=== PATIENT | female | born 1955 | race Caucasian/White ===

== ENCOUNTER 2019-07-24 09:05 | Inpatient (IN) ==
--- NOTE | 2019-07-24 09:07 | PROVIDER DOCUMENTATION ---
HPI-General Adult - General Stated Complaint: SOB Time Seen by Provider: 07/24/19 09:06 Source: patient Allergies/Adverse Reactions: Patient Allergies Allergy/AdvReac Type Severity Reaction Status Date / Time Penicillins Allergy RASH Verified 05/17/15 16:53 Home Medications: Home Medication List Medication Instructions Recorded Confirmed Last Taken Type Albuterol 2.5MG/Ipratrop 0.5MG 3 ml INH Q6H PRN PRN #30 neb 05/17/15 Unknown Rx [Duoneb] Albuterol Sulfate [Proair Hfa] 2 puff IH 4XDAY 05/17/15 05/17/15 05/15/15 History Aspirin 325 mg PO DAILY 05/17/15 05/17/15 05/17/15 08:00 History Meloxicam [Mobic] 7.5 mg PO DAILY 05/17/15 05/17/15 05/17/15 08:00 History Omeprazole [Prilosec] 20 mg PO DAILY 05/17/15 05/17/15 05/17/15 08:00 History Oxybutynin [Ditropan] 10 mg PO DAILY 05/17/15 05/17/15 05/17/15 08:00 History Paroxetine [Paxil] 20 mg PO DAILY 05/17/15 05/17/15 05/17/15 08:00 History Simvastatin 20 mg PO QHS 05/17/15 05/17/15 05/16/15 21:00 History Tiotropium [place] Inhaler 1 cap INH DAILY 05/17/15 05/17/15 05/17/15 08:00 History [Spiriva] Ondansetron [Zofran] 4 mg PO Q6H PRN PRN #20 tablet 06/25/16 Unknown Rx Promethazine [Phenergan] 25 mg PO Q6H PRN PRN #20 tablet 06/25/16 Unknown Rx Promethazine [Phenergan] 25 mg NC Q6H PRN PRN #14 supp 06/25/16 Unknown Rx - History of Present Illness -Gen Adult Nature of Presenting Problems: Pt. is 64 yof that presents with c/o SOB. Pt. reports she smokes and has COPD. She reports she is suppose to be on 2LO2 all the time but doesn't always wear it. She states that she went up her stairs today and couldn't breath. She denies any pain. Location of Pain/Injury: reports: none. denies: head, face, mouth, neck, chest, upper extremity, hand(s), abdomen, back, pelvis, genitalia, lower extremity, feet, upper body, lower body, generalized, other Pain Radiation: reports: no radiation. denies: arm(s), back, buttocks, chest, epigastric, feet, groin, jaw, flank (L), legs (lower), LLQ, LUQ, neck, periumbilical, flank (R), RLQ, RUQ, shoulder(s), scapula, scrotal, sternal notch, suprapubic, legs (upper), urethral, vaginal, other Quality of Pain: reports: none. denies: aching, pressure, tightness Severity: reports: moderate. denies: mild, severe Onset/Duration: reports: abrupt, this morning Timing: reports: still present. denies: improving, intermittent, getting worse Context/Activities at Onset: reports: light activity. denies: none, moderate activity, vigorous activity, recent emotional stress, recent physical stress, recent trauma history, possible bad food, cold exposure, eating, out of country travel, rest, sleep, sexual activity, other Modifying Factors: improves with: nothing Associated Symptoms: reports: shortness of breath. denies: denies symptoms, anxiety, arm pain, back/neck pain, chest pain, constipation, cough, diaphoresis, diarrhea, dizziness, EENT symptoms, fatigue, fever/chills, genitourinary problems, headaches, heartburn, joint pain, loss of appetite, malaise, muscle aches, sinus congestion/drainage, nausea, rash, seizure, sensory/motor loss, pain with inspiration, swelling/mass in abdomen, syncope, vomiting, weakness, trouble walking, other Similar Symptoms Previously?: Yes Recently seen or treated by another doctor?: No Review of Systems - Adult - REVIEW OF SYSTEMS - ADULT Constitutional: reports: no symptoms reported Eyes: reports: no symptoms reported Ears, Nose, Mouth & Throat: reports: no symptoms reported Cardiovascular: reports: no symptoms reported Respiratory: reports: see HPI, shortness of breath, wheezing. denies: chronic cough, dyspnea on exertion, hemoptysis Gastrointestinal: reports: no symptoms reported Genitourinary: reports: no symptoms reported Musculoskeletal: reports: no symptoms reported Integumentary: reports: no symptoms reported Neurological: reports: no symptoms reported Psychiatric: reports: no symptoms reported Past History - Adult - PAST MEDICAL HISTORY-ADULT Review of Records: reports: Old Records Reviewed, Nursing Assessment Review, Medications Reviewed, Social history reviewed & non-contributory. Major Childhood Illnesses: reports: denies history Cardiovascular: reports: denies history Respiratory: reports: COPD Gastrointestinal: reports: denies history Obstetrical/Gynecological: reports: denies history Genitourinary: reports: denies history Musculoskeletal: reports: denies history Neurological: reports: denies history Endocrine/Immune: reports: denies history Other Conditions: reports: denies history - IMMUNIZATION STATUS Childhood Immunizations: See Nurse Assessment Flu Vaccine: See Nurse Assessment - FAMILY HISTORY Family History: reviewed, not pertinent - SOCIAL HISTORY Smoking: cigarettes, greater than 1 pack/day Provider spent 3-5 mins advising pt. on dangers of tobacco.: Discussed manners to quit use, and f/u contacts for add'l counseling. Physical Exam-General - PHYSICAL EXAM-ADULT Initial Vital Signs Reviewed: Yes - CONSTITUTIONAL General Appearance: alert, moderate distress, thin. negative: anxious, slow to respond, obtunded, combative - EYES Eyes: PERRL/EOMI, pink conjunctivae - HEAD, EARS, NOSE, MOUTH & THROAT HENMT: normocephalic/atraumatic, moist mucous membranes - NECK Neck: non-tender, full range of motion, supple, normal inspection - RESPIRATORY Respiratory: respiratory distress, wheezing, increased rate - CARDIOVASCULAR Cardiovascular: regular rate, rhythm, no edema, tachycardia - GASTROINTESTINAL (ABDOMEN) Abdominal Exam: normal bowel sounds, non tender, soft - LYMPHATIC Lymphatic: no adenopathy - MUSCULOSKELETAL Back Exam: normal inspection, no CVA tenderness, no vertebral tenderness Extremity: normal range of motion, non-tender, normal gait, normal inspection Peripheral Pulses: radial (R): 2+, radial (L): 2+ - SKIN Integumentary: normal color, normal turgor, warm/dry - NEUROLOGIC Neurologic: grossly normal, no motor/sensory deficits - PSYCHIATRIC Psych/Mental Status: normal mood/affect, normal thought content, normal thought process, oriented x 3. negative: anxious, paranoid, tearful Progress - PLAN OF CARE/RESULTS Progress/Plan/Lab Results: Laboratory Tests 07/24/19 07/24/19 07/24/19 09:32 10:05 10:05 WBC 31.17 H RBC 4.98 Hgb 14.5 Hct 44.5 MCV 89.4 MCH 29.1 MCHC 32.6 L RDW Std Deviation 16.0 H Plt Count 278 MPV 13.0 H Immature Gran % (Auto) 0.4 Neut % (Auto) 71.9 Lymph % (Auto) 20.5 Alger % (Auto) 3.8 Eos % (Auto) 3.1 Baso % (Auto) 0.3 Immature Gran # (Auto) 0.12 H Neut # (Auto) 22.41 H Lymph # (Auto) 6.38 H Alger # (Auto) 1.20 H Eos # (Auto) 0.96 H Baso # (Auto) 0.10 Segmented Neutrophils 74 Lymphocytes 26 Pathologist Review Poikilocytosis 1+ Specimen Type ARTERIAL Sample Site R RADIAL pH 7.32 L pCO2 38 pO2 111 H HCO3 20.2 Base Excess -5.9 L Oxyhemoglobin 94.8 L ABG O2 Sat (Calculated) 20.5 ABG O2 Saturation 99.1 ABG Carboxyhemoglobin 3.10 H ABG Methemoglobin 1.1 Chirag Test YES A-a O2 Difference 41.0 Total Hemoglobin 15.3 Lactate 2.20 Liter Flow 2.0 Blood Gas Modality CANNULA FiO2 % 28.0 Sodium Potassium Chloride Carbon Dioxide Anion Gap BUN Creatinine Estimated GFR/1.73 m2 BUN/Creatinine Ratio Glucose Calculated Osmolality Calcium Total Bilirubin AST ALT Alkaline Phosphatase Creatine Kinase Troponin T High Sens [id number]-[id number] Pept 272 H Total Protein Albumin Globulin Albumin/Globulin Ratio Plasma Lactate 07/24/19 07/24/19 07/24/19 10:05 10:05 10:05 WBC RBC Hgb Hct MCV MCH MCHC RDW Std Deviation Plt Count MPV Immature Gran % (Auto) Neut % (Auto) Lymph % (Auto) Alger % (Auto) Eos % (Auto) Baso % (Auto) Immature Gran # (Auto) Neut # (Auto) Lymph # (Auto) Alger # (Auto) Eos # (Auto) Baso # (Auto) Segmented Neutrophils Lymphocytes Pathologist Review Poikilocytosis Specimen Type Sample Site pH pCO2 pO2 HCO3 Base Excess Oxyhemoglobin ABG O2 Sat (Calculated) ABG O2 Saturation ABG Carboxyhemoglobin ABG Methemoglobin Chirag Test A-a O2 Difference Total Hemoglobin Lactate Liter Flow Blood Gas Modality FiO2 % Sodium 140 Potassium 4.2 Chloride 106 Carbon Dioxide 22 L Anion Gap 12 BUN 12 Creatinine 0.9 Estimated GFR/1.73 m2 > 60 BUN/Creatinine Ratio 13 Glucose 236 H Calculated Osmolality 287 Calcium 8.8 Total Bilirubin 0.39 AST 16 ALT 11 Alkaline Phosphatase 95 Creatine Kinase 96 Troponin T High Sens 300 H* Skr-[id number] Pept Total Protein 6.8 Albumin 3.8 Globulin 3.0 Albumin/Globulin Ratio 1.3 Plasma Lactate 1.6 Discussed results and plan of care with patient. Patient agrees with plan and verbalizes understanding. Result Diagrams: 07/24/19 10:05 07/24/19 10:05 - EKG 1 Time of EKG reading by physician:: 09:20 EKG Read and Signed by:: Brittany Bonner EKG Interpretation (*Must complete 3 of following elements*): Abnormal Rate: 126 Rhythm: ST [place]: normal QRS: normal NC Interval: normal ST Wave: non-specific ST changes - XRAY 1 XRAY Study: Chest ([facility] [address] [place] [address] [place] [id number] [facility] - [address] [place] [address] Department of Imaging Patient: ARIEL HARDY Date: 07/24/19#: [id number] : 5ADM Status: REG ERAt#: [id number] Age/Sex: 64/FRoom/Bed: Loc: ED Ordering Physician: Todd eBard Family Physician: Chata Martel MD Reason for Procedure: sob Signed EXAM: CHEST-PORTABLE HISTORY: sob TECHNIQUE: Single view COMPARISON: 05/09/2019 FINDINGS: The lungs are hyperexpanded. Mild increased interstitial markings throughout the lungs. No cardiomegaly. No consolidation. No pleural effusions identified. There are scattered granuloma. IMPRESSION: Emphysema with pulmonary edema Electronically signed by Harlan Riggs 07/24/2019 9:33 AM 07/24/19932 Interpreting Physician: Harlan Riggs MD Dictated Date/Time: 07/24/19931 cc: Todd Beard; Chata Martel MD) XRAY Interpretation: See note - CONSULTS/PCP/HOSPITALIST Notification #1 *Consult/PCP/Hospitalist*: Dr. Morejon Reason/Comments: Consult Consult Disposition: other (Had not called back at time of admission) #2 Consult: Betsey for Dr. Coelho Time Discussed: 11:38 Reason/Comments: Admission Consult Disposition: Will see in ED, Admit Departure - Departure Date of Disposition Decision: 07/24/19 Time of Disposition Decision: 10:44 DIAGNOSIS: COPD with exacerbation, Shortness of breath, Elevated troponin Leucocytosis Qualifiers: Leukocytosis type: unspecified Qualified Code(s): D72.829 - Elevated white blood cell count, unspecified Disposition: ADMITTED INPATIENT 09 Certified Medical Emergency: Emergent Condition: Stable Referrals and Follow-Ups: Chata Martel MD [Primary Care Provider] - - Critical Care Note This patient required my direct & personal management of CC.: No Attestation - Physician/ WARREN Attestation Patient care was provided by Advanced Practice Provider:: Yes Advanced Practice Provider:: Todd Beard Advanced Practice Provider documentation review:: The Mid-level provider documentation, treatment plan and medical decision making was reviewed by the physician who agrees with all treatment and medical decision making by the P. The physician spent face to face time with patient:: No Advanced Practice Provider documentation review:: Supervising physician onsite and consulted in the evaluation and care of this patient. The physician did not have a face to face encounter with the patient.
[2019-07-24] MEDS ORDERED: SOLU-MEDROL IV ONE (09:15)
[2019-07-24] MEDS ORDERED: DUONEB (A & A) INH ONE (09:15)
--- NOTE | 2019-07-24 09:35 | Diag Imaging Result Doc PS360 ---
EXAM: CHEST-PORTABLE HISTORY: sob TECHNIQUE: Single view COMPARISON: 05/09/2019 FINDINGS: The lungs are hyperexpanded. Mild increased interstitial markings throughout the lungs. No cardiomegaly. No consolidation. No pleural effusions identified. There are scattered granuloma. IMPRESSION: Emphysema with pulmonary edema Electronically signed by Harlan Riggs 07/24/2019 9:33 AM
[2019-07-24 09:44] LABS: ALLEN TEST YES; BE -5.9 mmoll (-3.0-3.0); BLOOD TYPE ARTERIAL; HCO3-(ACT) 20.2 mmoll (20.0-26.0); METHB 1.1 % (0.0-1.5); O2(CT) 20.5 mL/dL (15.0-23.0); O2HB 94.8 % (95.0-99.0); PCO2(98.6) 38 mmHg (35-45); PO2(98.6) 111 mmHg (60-100); SAMPLE BLOOD; SAO2 99.1 % (95.0-100.0); THB 15.3 g/dL (11.5-17.4); pH(98.6) 7.32 (7.35-7.45)
[2019-07-24 09:45] LABS: MODALITY CANNULA
--- NOTE | 2019-07-24 09:56 | EKG Report ---
Test Performed on : 07/24/2019 09:20:07 AM Test Reason : SOB Blood Pressure : / mmHG Vent. Rate : 126 BPM Atrial Rate : 126 BPM P-R Int : 138 ms QRS Dur : 078 ms QT Int : 314 ms P-R-T Axes : 083 062 170 degrees QTc Int : [address] & T wave abnormality, consider inferolateral ischemia Abnormal ECG When compared with ECG of 17-MAY-2015 16:35, Vent. rate has increased BY 69 BPM T wave inversion less evident in Anterior leads Inverted T waves have replaced nonspecific T wave abnormality in Lateral leads Unconfirmed Result
[2019-07-24 10:29] LABS: BASO% 0.3 % (0.0-0.8); EOS# 0.96 X1000 (0.0-0.7); EOS% 3.1 % (0.0-10.0); HEMATOCRIT 44.5 % (37.0-47.0); HEMOGLOBIN 14.5 g/dL (12.0-16.0); IMM GRAN# 0.12 X1000 (0.0-0.04); IMM GRAN% 0.4 % (0.0-0.5); LYMPH# 6.38 X1000 (1.2-3.4); LYMPH% 20.5 % (20.5-51.1); MCH 29.1 PG (27-31); MCHC 32.6 g/dL (33-37); MCV 89.4 FL (81-99); MONO% 3.8 % (1.7-9.3); NEUT# 22.41 X1000 (1.4-6.5); NEUT% 71.9 % (42.2-75.2); PLT 278 X1000 (130-400); RBC 4.98 XMIL (4.2-5.4); WBC 31.17 X1000 (4.8-10.8)
[2019-07-24 10:41] LABS: AGAP 12; ALB/GLOB RATIO 1.3; ALBUMIN 3.8 g/dL (3.5-5.0); ALKALINE PHOSPHATASE 95 U/L (32-104); BUN 12 mg/dL (8-22); CALCIUM 8.8 mg/dL (8.8-10.2); CHLORIDE 106 mmol/L (98-107); CK PROFILE 96 U/L (24-173); COSMO 287; CREATININE 0.9 mg/dL (0.5-0.9); ESTIMATED GFR > 60; GLUCOSE 236 mg/dL (70-104); GOT 16 U/L (10-30); GPT 11 U/L (10-36); POTASSIUM 4.2 mmol/L (3.5-5.1); SODIUM 140 mmol/L (136-145); TCO2 22 mmol/L (25-35); TOTAL BILIRUBIN 0.39 mg/dL (0.20-1.00); TOTAL PROTEIN 6.8 g/dL (6.3-8.3)
[2019-07-24] MEDS ORDERED: NS 1,000 ML IV ONE (10:42)
[2019-07-24] MEDS ORDERED: ROCEPHIN 1 GM in NS 50 ML IV ONE (10:42)
[2019-07-24 11:10] LABS: LYMPHS 26 % (21-51); SEGS 74 % (42-75)
[2019-07-24 11:11] LABS: POIKILOCYTOSIS 1+
[2019-07-24] MEDS ORDERED: LASIX IV ONE ×2 (11:33→15:04)
[2019-07-24 13:11] LABS: URINE SOURCE CLEAN CATCH
[2019-07-24] MEDS ORDERED: LOVENOX SUBQ SCH (13:16)
[2019-07-24] MEDS ORDERED: ZOFRAN IV PRN (13:16)
[2019-07-24] MEDS ORDERED: NS NEB INH SCH (13:16)
[2019-07-24 13:28] LABS: BILIRUBIN URINE NEGATIVE (NEGATIVE); BLOOD URINE TRACE (NEGATIVE); COLOR YELLOW; GLUCOSE URINE 70 mg/dL (NEGATIVE); KETONE URINE NEGATIVE (NEGATIVE); LEUKOCYTES URINE NEGATIVE (NEGATIVE); NITRITE URINE POSITIVE (NEGATIVE); PROTEIN URINE 70 mg/dL (NEGATIVE); SP GRAVITY URINE 1.012; TURBIDITY URINE HAZY (CLEAR); UROBILINOGEN URINE NORMAL (NORMAL)
[2019-07-24 13:32] LABS: UR EPITHELIAL CELLS >10 /HPF (<10); URINE BACTERIA 3+ /HPF; URINE RBC <10 /HPF (<10)
[2019-07-24 13:45] LABS: URINE YEAST PRESENT
[2019-07-24] MEDS ORDERED: ZITHROMAX 500 MG/NS 500 MG/250 ML IVPB IV SCH (14:00)
[2019-07-24] MEDS ORDERED: PAXIL PO SCH (14:45)
[2019-07-24] MEDS ORDERED: FISH OIL CONCENTRATE PO SCH (14:45)
[2019-07-24] MEDS ORDERED: PRILOSEC PO SCH (14:45)
[2019-07-24] MEDS ORDERED: INDERAL PO SCH (14:45)
[2019-07-24] MEDS ORDERED: DITROPAN PO SCH (14:45)
[2019-07-24] MEDS ORDERED: HEPARIN IV PRN (15:06)
[2019-07-24] MEDS ORDERED: HEPARIN IV ONE (15:06)
--- NOTE | 2019-07-24 15:12 | Diag Imaging Result Doc PS360 ---
EXAM: CT ANGIOGRM PULMONARY ARTERIES 07/24/2019 HISTORY: severe SOB, COPD, rule out PE/pneumonia TECHNIQUE: This exam was performed using automated exposure control, adjustment of mA or kV according to patient size, and/or use of iterative reconstruction technique. COMMENT: 3-D MIPS were performed. There are no previous studies. There are some motion artifacts. There are no filling defects in the pulmonary arteries. There is somewhat suboptimal opacification of the aorta but no evidence of dissection or aneurysm is present. There are calcifications in the coronary arteries. There is no evidence of significant adenopathy. There is some apparent material within the right lower lobe bronchi with bronchial thickening suggesting bronchitis. The possibility of aspiration cannot be excluded. There is interstitial opacity in both lung bases and some dependent atelectasis particularly in the right lower lobe posteriorly. There is COPD. There are calcified nodules with fibrotic changes in the anterolateral right upper lobe. There is also a partially calcified nodular opacity in the left apex with some cavitation and bilateral apical pleural thickening. IMPRESSION: 1. No evidence of pulmonary emboli. 2. Pulmonary edema and COPD. The possibility of bronchitis and/or aspiration pneumonia in the right lower lobe cannot be excluded. 3. Old granulomatous changes. Electronically signed by Franco Rainey 07/24/2019 3:09 PM
[2019-07-24] MEDS: XOPENEX NEB INH SCH ×2 (15:20→23:35)
[2019-07-24] MEDS: ASPIRIN PO SCH (15:23)
[2019-07-24 15:34] LABS: INR 0.99; PROTIME 13.2 Seconds (11.0-16.0); PTT 32.7 Seconds (22.3-41.8)
[2019-07-24] MEDS: VENTOLIN HFA INH SCH ×2 (15:34→21:45)
[2019-07-24] MEDS ORDERED: ATIVAN IV ONE (15:48)
[2019-07-24] MEDS: HEPARIN 25,000 UNITS/D5W 25,000 UNIT/250 ML IV.SOLN IV SCH (15:54)
--- NOTE | 2019-07-24 15:56 | CARDIOLOGY CONSULTATION ---
DATE: 07/24/2019 HISTORY: Ms. Ora Haywood is a 64-year-old lady with severe COPD, sees pulmonary lung doctors here in [place]. Patient's thinks she sees Dr. Aranda and recently. She had been doing well, uses home oxygen. Her shortness of breath acutely worsened. She denies any chest pain. Came to the emergency room and was admitted. Cardiology was consulted for abnormal cardiac enzymes. Patient does not complain of any chest pain. She has cardiac history as below. She had significant shortness of breath as well. She is on nasal cannula. REVIEW OF SYSTEMS: 14 point review of system was done: Cardiovascular System: There is no history of palpitations there is no dizziness or syncope. Central nervous system: No focal weakness to suggest a CVA, transient ischemic attack. System: There is no dysuria or hematuria. Respiratory system: In addition to her COPD she has noticed some cough, no recent fevers. PAST MEDICAL HISTORY: 1. Possible takotsubo cardiomyopathy, ejection fraction 35% by cardiac catheterization May 2011. At that time cardiac catheterization revealed left main was normal. LAD was normal. Diagonal 30% stenosis. Circumflex 30%, RCA was okay. 2. Next history of severe COPD. 3. Hyperlipidemia. 4. Chronic smoker. HOME MEDICATIONS: Include aspirin, atorvastatin 80, nebulizers, ProAir, Spiriva inhalers, omeprazole, propranolol 20, Paxil 20, primidone and baclofen. ALLERGIES: She is allergic to penicillin. SOCIAL HISTORY: She is a chronic smoker. There is no history of alcohol abuse. PHYSICAL EXAMINATION: Blood pressure 118/67. First and second heart sounds were heard. There was no murmurs. Respiratory system: Bilateral expiratory wheeze, extensive. Abdomen was soft, nontender. There was no guarding or rigidity. Bowel sounds were heard. Central nervous system: Alert and was moving all 4 extremities.Extremities: Examination of extremities revealed no pedal edema. DATA: Electrocardiogram revealed normal sinus tachycardia. Biatrial enlargement. Nonspecific ST-T changes. LABORATORY EXAMINATION: Revealed WBC 31.17, platelet count 278,000, hemoglobin 14.5, hematocrit 44. ABGs: Sodium 140, potassium 4.2, BUN 12, creatinine 0.9. Troponin 300, proBNP 272. Blood gases pH 7.32 pCO2 38 chest x-ray, emphysema versus edema. ASSESSMENT AND PLAN: 1. Ms Ora Haywood is a 64-year-old lady who has had nonischemic cardiomyopathy with takotsubo, has severe COPD, is a smoker, has been doing reasonably well. She had increasing worsening shortness of breath. He came to the emergency room, was admitted. From a cardiac standpoint she has abnormal troponin suggestive of NQMI. We will get serial cardiac enzymes. Start her on heparin. 2. We will get an echocardiogram to assess cardiac and valvular function. 3. She has an elevated white count and worsening shortness of breath which is sudden onset. We will make sure there is no pneumonic process or pulmonary embolism. We will set up to undergo a CT angiogram of her lungs to rule out pulmonary embolism and assess for the pneumonia as well. A chest x-ray suggestive of severe emphysema. 4. As far as medications are concerned, we will continue with aspirin. At home she had been on propranolol. Given her COPD we will avoid the propranolol. We will get an echocardiogram. If she has LV dysfunction we will add COLLEEN inhibitors. 5. As far as beta-blockers are concerned, she takes propranolol 20 mg a day and in the past she was intolerant to higher doses of beta blockers because of bradycardia. This was as noted in our office records from [place]. 6. Chronic obstructive pulmonary disease. We will consult Dr. Aranda. That is her master yacht. Thank you for the consult. cc: Patrick Morejon MD [facility]
[2019-07-24] MEDS: MAXIPIME 1 GM in NS 50 ML IV SCH (15:59)
[2019-07-24] MEDS ORDERED: SODIUM BICARBONATE 8.4% 100 MEQ in D5W 1,000 ML IV SCH (16:30)
[2019-07-24] MEDS ORDERED: QUELICIN IV ONE (16:45)
[2019-07-24] MEDS ORDERED: AMIDATE IV ONE (16:45)
[2019-07-24] MEDS ORDERED: VERSED ONE (16:49)
[2019-07-24] MEDS ORDERED: AMIDATE ONE (16:49)
[2019-07-24] MEDS ORDERED: NORCURON ONE (16:49)
[2019-07-24] MEDS ORDERED: QUELICIN ONE (16:50)
--- NOTE | 2019-07-24 16:50 | Diag Imaging Result Doc PS360 ---
EXAM: CHEST-PORTABLE 07/24/2019 HISTORY: abnormal chest exam TECHNIQUE: AP portable upright at 1640 COMMENT: There is increased interstitial opacity throughout both lungs. There is a nodule in the left apex which was also present on 05/09/2019. The interstitial opacities were not present previously. Compared to the previous study at 0925 there is somewhat worsened opacity in the right costophrenic angle. There are more apparent Bertin B lines on the left. IMPRESSION: Worsening pulmonary edema. Electronically signed by Franco Rainey 07/24/2019 4:47 PM
[2019-07-24] MEDS: LEVOPHED 8 MG in D5 1/2 NS 250 ML IV SCH ×2 (16:55→21:06)
[2019-07-24] MEDS ORDERED: VANCOMYCIN IV PER PHARMACY MISC SCH (16:58)
[2019-07-24] MEDS ORDERED: MORPHINE IV ONE (16:58)
[2019-07-24] MEDS ORDERED: LEVOPHED 8 MG in D5 1/2 NS 250 ML IV SCH (17:00)
[2019-07-24] MEDS ORDERED: LIORESAL PO SCH (17:00)
[2019-07-24] MEDS ORDERED: NS 500 ML IV ONE (17:04)
[2019-07-24] MEDS: DIPRIVAN 1% 1,000 MG/100 ML BOTTLE IV SCH (17:30)
[2019-07-24] MEDS: NEO-SYNEPHRINE 50 MG in NS 250 ML IV SCH ×3 (17:30→22:44)
--- NOTE | 2019-07-24 17:53 | Diag Imaging Result Doc PS360 ---
EXAM: CHEST-PORTABLE 07/24/2019 HISTORY: tubes placement TECHNIQUE: AP portable supine at 1741 COMMENT: There is an endotracheal tube with its tip approximately 2 cm above the denis and an NG tube which passes below the diaphragm. There is diffuse interstitial pulmonary edema. The lungs are slightly better expanded than they were at the time the previous study at 1640. IMPRESSION: Pulmonary edema. Electronically signed by Franco Rainey 07/24/2019 5:51 PM
[2019-07-24] MEDS ORDERED: VANCOMYCIN 1,150 MG in NS 250 ML IV ONE (18:00)
[2019-07-24] MEDS: SOLU-MEDROL IV SCH (18:05)
--- NOTE | 2019-07-24 18:11 | HISTORY AND PHYSICAL ---
PRIMARY CARE PHYSICIAN: Is a Dr. Martel on [address] a female according to the patient. CHIEF COMPLAINT: Shortness of breath, sudden onset this morning while walking up some stairs. HISTORY OF PRESENTING ILLNESS: This is a 64-year-old female who presents to [facility] ER with complaints of shortness of breath with a sudden onset that began after she attempted to walk up some stairs this morning. She has a history of COPD and uses home O2 but is often noncompliant with that not wearing it at all time. Workup in the emergency room showed a white blood cell count of 31.17. Chest x-ray showed emphysema with pulmonary edema. EKG showed sinus tachycardia at 126. Her troponin T high sensitivity was 300. She currently denies any chest pain. No radiating numbness, tingling in her arms, shoulder, neck or through to her shoulder blade. She states she has had some nausea so she will be admitted to the PVC unit for further evaluation and treatment. PAST MEDICAL HISTORY: COPD with home O2 but is noncompliant and asthma. PAST SURGICAL HISTORY: Bilateral tubal ligation. FAMILY HISTORY: Reviewed and noncontributory. SOCIAL HISTORY: She currently lives with family, smokes a half a pack of cigarettes a day and has done so for the past 40 years and denies any alcohol or illicit drug use. ALLERGIES: Penicillin. HOME MEDICATIONS: A current list needs to be obtained, reconciled, reviewed and restarted as appropriate, will place an order for nursing to update and confirm home medications. LABORATORY DATA: Showed a white blood cell count of 31.17, hemoglobin 14.5, hematocrit 44.5, platelets 278,000. ABG showed a pH of 7.32, pCO2 of 38, PO2 111, bicarbonate 20.2. This was on 2 L via nasal cannula. Sodium 140, potassium 4.2, chloride 106, CO2 22, BUN of 12, creatinine of 0.9, glucose 236, creatine kinase of 96. Troponin T high sensitivity 300, proBNP of 272, plasma lactate of 1.6. Chest x-ray showed emphysema with pulmonary edema. EKG showed sinus tachycardia at 126. REVIEW OF SYSTEMS: She denied any fever, chills, blurred vision, dizziness, chest pain, she has had a productive cough of yellow sputum, shortness of breath, nausea. Denied any abdominal pain, constipation, diarrhea, burning or hurting with urination. PHYSICAL EXAMINATION: On arrival she had a temperature of 98.4 degrees, pulse 128, respirations 32, blood pressure 104/82, saturating 96% on 2 L via nasal cannula. HEENT: Normocephalic, atraumatic. Normal ENT inspection. Oropharynx and nares are clear. Pupils are equal, round, reactive to light, accommodation. Extraocular movements are intact. NECK: Normal inspection, normal range of motion. LUNGS: With wheezing throughout entire posterior lung robles. Mildly tachypneic. Equal lung expansion, chest wall movement noted, O2 currently in use. HEART: With sinus tachycardia. No murmurs, rubs, or gallops noted. ABDOMEN: Soft, nontender, nondistended. Bowel sounds are present x4 quadrants. MUSCULOSKELETAL: She has 5/5 strength x4 extremities. NEUROLOGICAL: The cranial nerves 2-12 appear grossly intact. ASSESSMENT: 1. Acute chronic obstructive pulmonary disease exacerbation. 2. Leukocytosis most likely secondary to #1. 3. An elevated troponin. 4. Tobacco abuse . PLAN: She will be admitted to the PVC unit, placed on telemetry, O2 per protocol, incentive spirometry. We are rechecking a cardiac profile and troponin T high sensitivity now. We will consult Cardiology. Place on a healthy heart diet. Will do Xopenex half strength q.8 hours, Solu-Medrol 80 mg IV q.8, Lovenox 40 mg subcu q.24 for DVT prophylaxis, Rocephin 1 gram IV q.24, Zofran 4 mg IV q.4 hours p.r.n., Lasix 40 mg IV q.12, azithromycin 500 IV q.24, recheck CBC, BMP in the a.m. Further orders after seen by attending and by taxation consultant. Dictated by SAGAR Pillai for Antwan Coelho MD cc: SAGAR Pillai MD
[2019-07-24 18:43] LABS: ALLEN TEST NO; BLOOD TYPE ARTERIAL; HCO3-(ACT) 17.9 mmoll (20.0-26.0); METHB 0.9 % (0.0-1.5); O2HB 97.9 % (95.0-99.0); PCO2(98.6) 39 mmHg (35-45); PO2(98.6) 478 mmHg (60-100); SAMPLE BLOOD; SRATE 10 BPM; THB 12.1 g/dL (11.5-17.4); TVOL 700 mL; pH(98.6) 7.26 (7.35-7.45)
[2019-07-24 18:45] LABS: MODALITY VENTILATOR
[2019-07-24] MEDS ORDERED: EPINEPHRINE 4 MG in NS 250 ML IV SCH (19:45)
[2019-07-24] MEDS: DOBUTAMINE 500/D5W 500 MG/250 ML IV.SOLN IV SCH (20:15)
[2019-07-24] MEDS: PITRESSIN 40 UNIT in NS 100 ML IV SCH (20:16)
[2019-07-24] MEDS ORDERED: SINGULAIR PO SCH (21:00)
--- NOTE | 2019-07-24 21:32 | HISTORY AND PHYSICAL ---
ADDENDUM: I have seen and examined Ms. Haywood today at the bedside, with the mother and father- in-law and the . Ms. Haywood herself is not able to give me a history because she is extremely dyspneic, and she keeps repeating that she cannot breathe. The refers that Ms. Haywood has COPD, uses home oxygen of about 2 L continuous use. She woke up this morning with extreme shortness of breath, unable to breathe. She came to the emergency room because of shortness of breath. She has been evaluated and has been admitted to [facility]. When I came to evaluate Ms. Haywood, she is breathing more than almost 40 per minute. She is speaking in just some words, unable to even complete a sentence. She keeps saying that she cannot breathe. PHYSICAL EXAMINATION: VITAL SIGNS: Current blood pressure is 118/67. She is tachycardic at 133. She is 91% on Venturi mask. GENERAL: Ms. Haywood is a 64-year-old elderly female. She looks chronically ill and somewhat undernourished. HEENT: Mucosa is pink and moist. Anicteric. Acyanotic. NECK: Supple. No JVD. CHEST: Air entry was bilaterally reduced. It is almost like a silent lung; however, there is some hush air entry from the upper airway. Some distant rhonchi. ABDOMEN: Soft. CARDIOVASCULAR: Unremarkable. CENTRAL NERVOUS SYSTEM: The patient is awake, alert, but only will say a few words and then complain of shortness of breath. LABORATORY DATA: Laboratory data has been reviewed. Remarkably, the troponins are extremely elevated. The patient's ABG showed pH of 7.32, pCO2 of 38, pO2 of 30. Chemistry for the most part, bicarbonate was 22, gap of 12. WBC is 13.17. IMAGING STUDIES: A chest x-ray showed emphysema with pulmonary edema. A CT scan of the lungs shows no evidence of pulmonary emboli. There is pulmonary edema and COPD. There is possibility of bronchitis, and/or aspiration pneumonia in the right lower lobe cannot be excluded. There are old granulomatous changes. ASSESSMENT: 1. Zhbqf-[id number] hypoxemic respiratory failure. The patient is extremely dyspneic. She seems to be getting into respiratory arrest due to severe chronic obstructive pulmonary disease exacerbation. For now we are going to transfer Ms. Haywood to the intensive care unit. We are going to put her on bilevel positive airway pressure, monitor her for about 2-3 hours. If she is not tolerating the bilevel positive airway pressure or if her hemodynamics and her arterial blood gases get any worse, we will intubate her. I have discussed this plan with the family, and they are both in agreement. Ms. Haywood is currently Full Code. 2. History of chronic obstructive pulmonary disease with severe exacerbation. We will continue with antibiotics. I have changed the current antimicrobial coverage to also cover pseudomonas as well as methicillin-resistant Staphylococcus aureus. I have changed antibiotics to cefepime and vancomycin. We will continue with nebulizations and as well as the steroids. 3. Tobacco use and abuse prior to hospitalization. The patient has been counseled. 4. Elevated troponin, presumably from demand mismatch; however, an underlying acute coronary syndrome cannot be completely ruled out. Cardiology has been consulted. The patient's CAT scan seems to suggest that there is also coronary calcification. 5. The patient has been evaluated by Cardiology and also by Pulmonary Medicine. We will follow up with further recommendations from them. Please refer to the details of the history and physical examination which has been dictated by the nurse practitioner. I have discussed the plan with her. I have also discussed my findings and the plan with the family who are at the bedside. As I said, Ms. Haywood's code status is Full Code, discussed with the and the family. cc: Antwan Coelho MD Critical time spent 1 hour [facility]
[2019-07-24] MEDS: SYMBICORT 160/4.5 MICROGM INHALER INH SCH (21:45)
[2019-07-24] MEDS: LIPITOR PO SCH (21:52)
[2019-07-24] MEDS ORDERED: LASIX IV SCH (22:00)
--- NOTE | 2019-07-24 23:13 | OPERATIVE NOTE ---
PROCEDURE DATE: 07/24/2019 TIME OF PROCEDURE: 1635 TYPE OF PROCEDURE: Endotracheal intubation. INDICATION: Severe respiratory distress. DESCRIPTION OF PROCEDURE: Ms. Haywood was admitted early on because of severe respiratory failure, was re-evaluated in [facility] and was found to be progressively getting worse. She was started on BiPAP; however, that did not improve. She was transferred to the ICU. At the ICU, she became hypotensive and was desatting on the BiPAP so a decision was made to secure the airway with endotracheal intubation. Procedure was discussed with the family who had already consented. Ms. Haywood was given 10 mg of etomidate, 60 mg of succinylcholine for rapid sequence intubation. When she became more relaxed, she was bagged until oxygenation was about 96% to 98%. Subsequently, MAC #4 was used to directly visualize the cord. Endotracheal tube #7.5 was subsequently advanced through the cords till it was 23 at the mouth. Caloric capnography was subsequently done, and there was adequate change of color. The patient was auscultated, and there was adequate bilateral breath sounds. Chest x-ray was still pending at the time of the dictation. The patient was re-bagged, and oxygenation was up to 95% to 97%. She is going to be connected to the ventilator and continue with the other part of the critical care management. cc: Antwan Coelho MD
[2019-07-25] MEDS: PITRESSIN 40 UNIT in NS 100 ML IV SCH ×4 (00:49→20:14)
[2019-07-25] MEDS: NEO-SYNEPHRINE 50 MG in NS 250 ML IV SCH ×10 (01:07→23:19)
--- NOTE | 2019-07-25 01:07 | PULMONOLOGY CONSULTATION ---
DATE: 07/24/2019 CONSULTING PHYSICIAN: Dr. Coelho. CHIEF COMPLAINT: Shortness of breath. HISTORY OF PRESENT ILLNESS: This is a 64-year-old female with a history of COPD, home O2 with noncompliance, who presents to the emergency room complaining of a sudden onset of shortness of breath while walking up stairs. She reports increasing dyspnea with episodes of feeling hot inside and then chills over the past 48 hours. She denied any chest pain, palpitations, productive cough or any known sick contacts. PAST MEDICAL HISTORY: COPD with home O2 and noncompliance, hyperlipidemia and possible takotsubo cardiomyopathy with an ejection fraction of 35% in 2010. PAST SURGICAL HISTORY: Bilateral tubal ligation. SOCIAL HISTORY: She lives with . She smokes about a pack of cigarettes a day, has done so for 40 years. Denies any alcohol or illicit drug use. ALLERGIES: Penicillin. HOME MEDICATIONS: A list will be obtained by the nursing staff and once verified we will review and restart as appropriate. LABORATORIES: WBC is 31 with hemoglobin 14.5, hematocrit 44.5, and platelets 278,000. INR 0.99. Sodium 140, potassium 4.2, BUN 12, creatinine 0.9 with a glucose of 236. Troponin T is 300 with a repeat of 754. ProBNP 272. Urinalysis reveals positive nitrites with greater than 10 epithelial cells, 10 to 20 microscopic white blood cells with yeast present. Urine culture and blood cultures are pending. Influenza A and B are negative. REVIEW OF SYSTEMS: Discussed with patient with pertinent positives stated in the HPI. She denied any syncope, dizziness, chest pain, palpitations, a productive cough, any nausea, vomiting, diarrhea, constipation, black or bloody vomitus or stools, hematuria, dysuria, frequency, urgency. PHYSICAL EXAMINATION: General: This is a 64-year-old female who is lying on the stretcher in respiratory distress. Cardiovascular: Regular rate and rhythm. She is tachycardic. S1 and S2 appreciated. Pulmonary: She is tachypneic in the 50s with expiratory wheezes heard throughout. Chest rises and falls symmetric with respiration. Gastrointestinal: Abdomen is soft, nontender, nondistended with bowel sounds in all 4 quadrants. Genitourinary: Story is patent to bedside bag with radha urine draining. IMAGIN. EKG reveals normal sinus tachycardia with biatrial enlargement, nonspecific ST changes. 2. Chest x-ray revealed emphysema with pulmonary edema. ASSESSMENT: 1. Acute on chronic chronic obstructive pulmonary disease exacerbation. 2. Leukocytosis. 3. Probable urinary tract infection. 4. Nonischemic cardiomyopathy with takotsubo with ejection fraction of 35% in 2011. 5. Non Q wave OR Cardiology has evaluated her. 6. Continued tobacco use PLAN: 1. The patient will be transferred to ICU. She will be placed on BiPAP. Will intubate if she does not improve rapidly on BiPAP. 2. Continue antibiotic coverage of cefepime and vancomycin. Further antibiotics culture driven. 3. Xopenex nebulizers q.8 hours. Steroids. Further treatments pending hospital course. Plan was discussed with Dr. Mcgraw. Dictated by SAGAR Penny for Carloz Mcgraw MD cc: SAGAR Penny MD [facility]
[2019-07-25] MEDS: LEVOPHED 8 MG in D5 1/2 NS 250 ML IV SCH ×6 (01:10→23:56)
[2019-07-25] MEDS: MAXIPIME 1 GM in NS 50 ML IV SCH ×3 (01:27→15:26)
[2019-07-25] MEDS: SOLU-MEDROL IV SCH ×3 (01:28→18:10)
[2019-07-25] MEDS: DOBUTAMINE 500/D5W 500 MG/250 ML IV.SOLN IV SCH ×3 (03:13→20:14)
[2019-07-25 04:57] LABS: ALLEN TEST YES; BE -4.8 mmoll (-3.0-3.0); BLOOD TYPE ARTERIAL; HCO3-(ACT) 21.2 mmoll (20.0-26.0); O2(CT) 19.5 mL/dL (15.0-23.0); O2HB 97.5 % (95.0-99.0); PCO2(98.6) 26 mmHg (35-45); PO2(98.6) 183 mmHg (60-100); SAMPLE BLOOD; SAO2 99.9 % (95.0-100.0); SRATE 10 BPM; TVOL 700 mL; pH(98.6) 7.44 (7.35-7.45)
[2019-07-25 05:03] LABS: BASO# 0.03 X1000 (0.0-0.2); BASO% 0.1 % (0.0-0.8); EOS# 0.08 X1000 (0.0-0.7); EOS% 0.2 % (0.0-10.0); HEMATOCRIT 39.8 % (37.0-47.0); HEMOGLOBIN 13.1 g/dL (12.0-16.0); IMM GRAN# 0.12 X1000 (0.0-0.04); IMM GRAN% 0.4 % (0.0-0.5); LYMPH# 3.63 X1000 (1.2-3.4); LYMPH% 10.8 % (20.5-51.1); MCH 29.3 PG (27-31); MCHC 32.9 g/dL (33-37); MONO# 1.11 X1000 (0.11-0.59); MONO% 3.3 % (1.7-9.3); MPV 13.6 FL (7.4-10.4); NEUT# 28.56 X1000 (1.4-6.5); NEUT% 85.2 % (42.2-75.2); PLT 202 X1000 (130-400); RBC 4.47 XMIL (4.2-5.4); RDW 15.5 % (11.5-14.5); WBC 33.53 X1000 (4.8-10.8)
[2019-07-25 05:04] LABS: MODALITY VENTILATOR
[2019-07-25] MEDS: DIPRIVAN 1% 1,000 MG/100 ML BOTTLE IV SCH (05:54)
[2019-07-25 06:30] LABS: CREATININE 1.3 mg/dL (0.5-0.9); POTASSIUM 3.3 mmol/L (3.5-5.1)
--- NOTE | 2019-07-25 07:15 | Diag Imaging Result Doc PS360 ---
EXAM: CHEST-PORTABLE 07/25/2019 HISTORY: intubated, hypoxemic resp failure TECHNIQUE: AP portable at 0556 COMMENT: There is interstitial opacity with Bertin B lines bilaterally. There is an endotracheal tube with its tip 2 cm above the denis and an NG tube which passes below the diaphragm into the stomach. The heart size and pulmonary vascularity are within normal limits. Considering differences in technique there has been no significant change since previous study of 07/24/2019. IMPRESSION: Pulmonary edema. Electronically signed by Franco Rainey 07/25/2019 7:12 AM
[2019-07-25] MEDS: CALCIUM GLUCONATE 1 GM in NS 50 ML IV ONE ×2 (07:30→07:55)
[2019-07-25] MEDS: VENTOLIN HFA INH SCH ×2 (07:40→09:02)
[2019-07-25] MEDS: XOPENEX NEB INH SCH ×3 (07:40→22:42)
[2019-07-25] MEDS: SYMBICORT 160/4.5 MICROGM INHALER INH SCH ×2 (07:41→20:17)
[2019-07-25 07:45] LABS: BANDS 8 % (0-1); LYMPHS 6 % (21-51); SEGS 86 % (42-75)
--- NOTE | 2019-07-25 08:00 | ECHO REPORT ---
ORDER DATE: 07/24/2019 INTERPRETING PHYSICIAN: Aris Cruz MD. PROCEDURE: Two day echocardiogram, limited study. INDICATIONS: Patient with shock, respiratory failure, COPD, supposedly acute myocardial infarction. M-MODE MEASUREMENTS: Left ventricle end diastole: 5.4 cm. Left ventricle end systole: 5.0 cm. Posterior wall: 0.5 cm. Interventricular septum: 0.8 cm. SUMMARY OF 2-DIMENSIONAL IMAGIN. The study is difficult. The left ventricular chamber is dilated and is severely hypokinetic. 2. There is only motion of the basal segments of the septum, the lateral wall, the anteroseptal segment, and the posterior wall. The mid to apical anterior wall is entirely akinetic. Global ejection fraction is no more than 15%. It may be as low as 8%. This could represent an extreme case of stress-related cardiomyopathy. 3. The right-sided chambers are not dilated. 4. The left atrium is probably at the upper limits of normal. 5. There is no obvious morphologic abnormality of the mitral and aortic valve, although, the study again was only aimed at looking at the left ventricular ejection fraction. 6. There is a suggestion of a trivial pericardial effusion without any tamponade. 7. The inferior vena cava was not visualized. Clinical correlation is strongly recommended. cc: MD Antwan Flaherty MD
[2019-07-25] MEDS: FENTANYL IV PRN ×2 (08:26→13:07)
[2019-07-25] MEDS ORDERED: ATIVAN IV PRN (08:27)
[2019-07-25] MEDS ORDERED: ATIVAN 20 MG in NS 190 ML IV SCH (08:30)
[2019-07-25] MEDS: ASPIRIN PO SCH (08:38)
[2019-07-25] MEDS: SODIUM CHLORIDE 0.9% INJ SCH (08:39)
[2019-07-25] MEDS: PROTONIX IV SCH (08:39)
[2019-07-25] MEDS: ATIVAN 20 MG in NS 190 ML IV SCH ×3 (09:21→23:20)
[2019-07-25 09:56] LABS: INR 1.41; PROTIME 17.5 Seconds (11.0-16.0)
[2019-07-25] MEDS ORDERED: ROCEPHIN 1 GM in NS 50 ML IV SCH (10:00)
[2019-07-25] MEDS ORDERED: NS 250 ML ONE (10:53)
--- NOTE | 2019-07-25 11:44 | CARDIOLOGY PROGRESS NOTE ---
DATE: 07/25/2019 CHIEF COMPLAINT: Shortness of breath, hypertension. SUBJECTIVE: Mrs. Haywood is intubated. She is on maximum doses of pressors. Her chest x-ray this morning shows pulmonary edema. A CT scan of the chest yesterday showed coronary artery calcification, emphysema, and there was no evidence of pulmonary emboli. Old granulomatous changes. OBJECTIVE: Vital signs: Blood pressure is 116/85, pulse is 140, respiration 42, temperature is 98.6. General: The patient is intubated, unresponsive. HEENT: Unremarkable. Chest: Diminished breath sounds diffusely. Heart: Sounds tachycardic, irregular. I do not hear a gallop or murmur. Abdomen: Soft. Extremities: Showed markedly diminished pulses. Neurologic exam: She is unresponsive. BLOOD WORK: White cell count is 33,530, hemoglobin is 13.1, hematocrit 39.8. Sodium is 136, potassium 3.3, BUN 17, creatinine 1.3. Troponin is 745 ng/L. Her ProBNP is 34,745. IMPRESSION: 1. A patient who presents with acute respiratory failure. This is probably a combination of sepsis and underlying emphysema. The patient probably has underlying coronary heart disease. 2. Coronary atherosclerosis. Noted on computed tomography of the chest. Possible myocardial infarction. Question of takotsubo cardiomyopathy. RECOMMENDATIONS: At this time, she is on maximal support. Prognosis is really very poor. I will check a C-reactive protein to see if there is indeed indication of infection. At this time, we do not have any blood culture growing. Her influenza screen was negative. Her echocardiogram yesterday showed that her ejection fraction is 8% to 15%. There may be a suggestion of takotsubo however it appears to be an extreme case of it if indeed we are dealing with that. Prognosis is still very poor given the very low ejection fraction. cc: Aris Cruz MD
[2019-07-25] MEDS: HUMALOG SUBQ SCH ×3 (11:45→20:15)
--- NOTE | 2019-07-25 13:45 | PROGRESS NOTE ---
DATE: 07/25/2019 SUBJECTIVE: This morning Ms. Haywood continues to be extremely critical. Overnight, she remained for the most part hypotensive. She has been started on almost every pressor. She is currently on Levophed, Eliazar-Synephrine, dobutamine, vasopressin, epinephrine. She is also on heparin drip. OBJECTIVE: Vital signs: Blood pressure is 110/86, pulse of 130, respiration is 25, temperature is 97.4 degrees. General: Ms. Haywood a 64-year-old currently in the ICU intubated, and on sedation. The propofol sedation is currently off. She is awake and she moves all extremities. She seems to be moving the head to her name and tracking. On general exam, Ms. Haywood is a 64-year-old female. She is intubated. HEENT: Mucosa is pink and moist. Anicteric. Acyanotic. Neck: Supple. There is a right EJ catheter. Chest: Air entry is bilaterally reduced, some distant wheezing and transmitted sounds from the ventilator. Cardiovascular: Tachycardic but no murmurs, no rubs, no gallops. Gi: Abdomen is soft. Bowel sounds present. Extremities: No pedal edema. Central nervous system: The patient is currently intubated. Propofol is off. Eyes open, moves the head and tracking, moves the lower extremities. She does not, however, seem to be following commands. LABORATORY DATA: WBC is 33.53, hemoglobin is 13.1, platelet count of 202,000. Chemistry is reviewed. Potassium is 3.3, creatinine is up to 1.3. The patient's I's and O's: Urine output was 1220. She is currently positive balance of 2237. A chest x-ray this morning shows interstitial opacity with Bertin B-lines bilateral. The heart size and pulmonary vasculature are within normal limits considering differences in technique. So far, blood cultures are pending. The flu is negative. Sputum Gram stain shows 2+ of gram- positive cocci. Pro B was elevated yesterday. We are still pending another repeat this morning. A limited echocardiogram done yesterday shows an ejection fraction of 15%. It may be as low as 8% and the mid to apical anterior wall is completely akinetic and that this could represent extreme case of stress-related cardiomyopathy. ASSESSMENT: 1. Refractory shock presumably cardiogenic in origin. However, septic shock is also a potential etiology. The patient is currently on antimicrobial coverage. She is also on inotropes and vasopressors. 2. Severe systolic dysfunction, presumably from extreme case of takotsubo. Cardiology is on board. 3. Acute hypoxemic respiratory failure. The patient is intubated, seems to be synchronizing well. Pulmonary Medicine is on board. 4. Chronic obstructive pulmonary disease with severe exacerbation. The patient continues to be on nebulizations, steroids, and antimicrobial coverage. 5. Acute kidney injury presumably multifactorial including possible acute tubular necrosis medications. The patient seems to be making adequate urine. We are going to continue to monitor the creatinine, which went up slightly to 1.3 this morning. PLAN: So in general, I think Ms. Haywood continues to be critically sick. She ran multiple episodes of hypotension at night. I have discontinue the propofol because of persistent hypotension. We will use Ativan for sedation. We are going to continue with the current inotropes and vasopressor coverage. The patient is on steroids and antimicrobial therapy. I will update the family members about Ms. Haywood continued critical condition. Overnight, Ms. Haywood has been made Do Not Resuscitate level 2. cc: Antwan Coelho MD Critical time spent 1 hour [facility]
[2019-07-25] MEDS ORDERED: HEPARIN IV PRN (13:48)
[2019-07-25] MEDS: HEPARIN 25,000 UNITS/D5W 25,000 UNIT/250 ML IV.SOLN IV SCH (15:15)
--- NOTE | 2019-07-25 15:43 | PULMONOLOGY PROGRESS NOTE ---
DATE: 07/25/2019 SUBJECTIVE: Ms. Haywood continues intubated on 4 pressors, she has p.r.n. Ativan ordered for agitation or sedation and she required none throughout the night. OBJECTIVE: Vital Signs: Blood pressure 122/99 with a heart rate of 134, respirations are ranging from 22 to 34, temperature is 98.6 degrees with O2 saturations that are 97 to 100 percent on 40% FiO2. Ms Haywood is a 64-year-old female who appears under nourished who is currently intubated in the ICU. HEENT: Head is normocephalic, atraumatic. Mucous membranes are moist. Pupils are equal, round, react to light. Neck: Supple with trachea midline. Cardiovascular: Regular rate and rhythm, she is tachycardic, S1 and S2 are appreciated. She has no lower extremity edema. Pulmonary: Breath sounds are coarse with wheezes scattered throughout. Chest rises and falls symmetric with respiration. Gastrointestinal: Abdomen soft, nondistended, with bowel sounds in all 4 quadrants. Neurologic: She is sedated, she is intubated. She does move extremities spontaneously x4. She does withdraw to pain. Genitourinary: Story is patent to bedside bag with clear yellow urine draining. LABS: WBC is 33.5 with hemoglobin 13.1, hematocrit 39.8, platelets of 202,000. Sodium is 136, potassium 3.3, BUN 17, creatinine 1.3 with a glucose of 315, calcium is 7, her proBNP is 34,745 troponin 745 Blood cultures and urine cultures are pending. Chest x-ray revealed pulmonary edema with interstitial opacity with curly B-lines bilaterally. ASSESSMENT and PLAN: 1. Shock - Continue pressors and Inotropes 2. Sepsis - pneumonia and UTI, cultures pending - Continue antibiotics 3. Acute hypoxemic respiratory failure - Continue mechanical ventilation 4. Acute on chronic chronic obstructive pulmonary disease with severe exacerbation. Continue DuoNebs, Steroids 5. Acute kidney injury 6. Nonischemic cardiomyopathy with possible takotsubo with ejection fraction of 8 to 15 percent on 07/24/2019. 7. Non-Q-wave myocardial infarction. 8. Hypocalcemia. 9. Continued tobacco abuse. Cardiology following Plan was discussed with Dr. Mcgraw. Dictated by SAGAR Penny for Carloz Mcgraw MD cc: SAGAR Penny MD [facility]
[2019-07-25] MEDS: LIPITOR PO SCH (20:15)
[2019-07-26] MEDS: SOLU-MEDROL IV SCH ×2 (01:05→09:53)
[2019-07-26] MEDS: MAXIPIME 1 GM in NS 50 ML IV SCH ×2 (01:05→07:21)
[2019-07-26] MEDS: NEO-SYNEPHRINE 50 MG in NS 250 ML IV SCH ×4 (02:24→10:05)
[2019-07-26] MEDS: LEVOPHED 8 MG in D5 1/2 NS 250 ML IV SCH ×2 (04:23→08:55)
[2019-07-26] MEDS: PITRESSIN 40 UNIT in NS 100 ML IV SCH (04:24)
[2019-07-26] MEDS: DOBUTAMINE 500/D5W 500 MG/250 ML IV.SOLN IV SCH (04:24)
[2019-07-26 04:38] LABS: ALLEN TEST YES; BE -11.9 mmoll (-3.0-3.0); BLOOD TYPE ARTERIAL; HCO3-(ACT) 15.5 mmoll (20.0-26.0); METHB 0.2 % (0.0-1.5); O2(CT) 14.3 mL/dL (15.0-23.0); O2HB 91.6 % (95.0-99.0); PCO2(98.6) 30 mmHg (35-45); PO2(98.6) 67 mmHg (60-100); SAMPLE BLOOD; SAO2 94.7 % (95.0-100.0); SRATE 10 BPM; THB 11.1 g/dL (11.5-17.4); TVOL 700 mL; pH(98.6) 7.27 (7.35-7.45)
[2019-07-26 04:40] LABS: MODALITY VENTILATOR
[2019-07-26] MEDS: ATIVAN 20 MG in NS 190 ML IV SCH ×2 (05:06→11:34)
[2019-07-26 06:07] LABS: BASO# 0.02 X1000 (0.0-0.2); BASO% 0.1 % (0.0-0.8); HEMOGLOBIN 12.5 g/dL (12.0-16.0); IMM GRAN# 0.14 X1000 (0.0-0.04); IMM GRAN% 0.5 % (0.0-0.5); LYMPH# 1.05 X1000 (1.2-3.4); LYMPH% 3.7 % (20.5-51.1); MCH 29.2 PG (27-31); MCHC 32.1 g/dL (33-37); MCV 91.1 FL (81-99); MONO# 1.89 X1000 (0.11-0.59); MONO% 6.7 % (1.7-9.3); MPV 13.4 FL (7.4-10.4); NEUT# 25.22 X1000 (1.4-6.5); PLT 126 X1000 (130-400); RBC 4.28 XMIL (4.2-5.4); RDW 15.8 % (11.5-14.5); WBC 28.32 X1000 (4.8-10.8)
[2019-07-26] MEDS: HUMALOG SUBQ SCH ×2 (06:20→11:08)
--- NOTE | 2019-07-26 07:21 | Diag Imaging Result Doc PS360 ---
EXAM: CHEST-PORTABLE 07/26/2019 HISTORY: intubated, hypoxemic resp failure TECHNIQUE: AP portable at 0531 COMMENT: There is bilateral pleural effusion. There is interstitial lung pulmonary edema with Bertin B lines bilaterally. This appears slightly worse in the right lower lobe than on 07/25/2019. The endotracheal and NG tubes remain in place. The right PICC line tip is in the superior vena cava. IMPRESSION: Slightly worsened pulmonary edema. Bilateral pleural effusions. Electronically signed by Franco Rainey 07/26/2019 7:18 AM
[2019-07-26] MEDS: XOPENEX NEB INH SCH ×2 (07:41→16:38)
[2019-07-26] MEDS: SYMBICORT 160/4.5 MICROGM INHALER INH SCH (07:41)
[2019-07-26] MEDS: ASPIRIN PO SCH (08:18)
[2019-07-26] MEDS: SODIUM CHLORIDE 0.9% INJ SCH (08:19)
[2019-07-26] MEDS: PROTONIX IV SCH (08:19)
[2019-07-26 08:53] LABS: BANDS 4 % (0-1); LARGE PLATELETS 1+; LYMPHS 2 % (21-51); MONO 6 % (1-9); SEGS 88 % (42-75)
[2019-07-26 08:55] LABS: POIKILOCYTOSIS 1+
[2019-07-26 09:16] LABS: ALB/GLOB RATIO 1.4; ALBUMIN 2.8 g/dL (3.5-5.0); CALCIUM 6.4 mg/dL (8.8-10.2); CREATININE 1.4 mg/dL (0.5-0.9); POTASSIUM 4.1 mmol/L (3.5-5.1); TOTAL BILIRUBIN 0.77 mg/dL (0.20-1.00); TOTAL PROTEIN 4.8 g/dL (6.3-8.3)
[2019-07-26] MEDS: FENTANYL IV PRN (09:21)
[2019-07-26] MEDS ORDERED: PROTONIX IV SCH (09:30)
[2019-07-26] MEDS ORDERED: ZYVOX 600 MG/D5W 600 MG/300 ML IVPB IV SCH (09:30)
[2019-07-26] MEDS ORDERED: FENTANYL 1,000 MICROGM in NS 80 ML IV SCH (09:30)
[2019-07-26] MEDS ORDERED: SODIUM BICARBONATE 8.4% IV ONE (09:34)
[2019-07-26] MEDS ORDERED: LASIX IV ONE (09:40)
[2019-07-26] MEDS ORDERED: TAMIFLU PO SCH (09:45)
[2019-07-26] MEDS: SODIUM BICARBONATE 8.4% IV PUSH SCH ×3 (09:54→13:34)
[2019-07-26] MEDS ORDERED: CALCIUM GLUCONATE 2 GM in NS 100 ML IV ONE (10:00)
--- NOTE | 2019-07-26 10:15 | PROGRESS NOTE ---
DATE: 07/26/2019 SUBJECTIVE: This morning, I saw Ms. Haywood in the ICU. She continues to be intubated. I understand the sedation was discontinued because blood pressures were undetectable. I also understand that she has been breathing about 3 to 4 times above the ventilator. This has been going on throughout the night. OBJECTIVE: Current Vital Signs: Blood pressure is 98/76, pulse of 140, respirations are 37, temperature is 99.5 degrees, patient is saturating 95% on mechanical ventilation. General Examination: Ms. Haywood is a 64-year-old, female. She is in bed. She seems quite uncomfortable under the ventilator. She is breathing about 3 to 4 times above the settings. HEENT: Mucosa is pink, slightly dusky. Neck: Supple. Chest: Air entry is bilaterally reduced with crackles posteriorly. Cardiovascular: Tachycardic. No murmurs, no rubs, no gallops. GI: Abdomen is soft. Bowel sounds present. Extremities: No pedal edema. TECHNICAL ENGINEER: The patient is nonresponsive, even to painful stimulation. At one point, I think she did respond well to gag. The pupils are bilaterally dilated and very sluggishly reactive. She seems to have roving sign. She would not move the extremities to any painful stimulation. Laboratory Data: WBC is 28.32, hemoglobin is 12.5, platelet count is down to 126,000. Chemistry is also reviewed. The patient is extremely acidotic with bicarb of 12, creatinine of 1.4, glucose of 205. AST and ALT are remarkably elevated. So far, the sputum culture is growing gram-positive cocci. Blood cultures have been 48 hours negative. Urine culture is incubating more. Imaging Studies: A chest x-ray shows slightly worsened pulmonary edema, bilateral pleural effusions. The ABG shows a combination of metabolic and respiratory acidosis. Is and Os: Urine output was 900. She is currently positive balance of over 7000. The patient has over 600 mL of coffee-grounds/bloody secretions from the upper GI. ASSESSMENT: 1. Refractory shock, presumably a combination of cardiogenic shock and septic shock. The patient is on 4 different pressors and inotropes. She continues to be extremely hypotensive. 2. Severe systolic dysfunction with ejection fraction of 8 to 15 percent, presumably extreme case of takotsubo. However, an underlying acute coronary syndrome cannot be entirely ruled out. 3. Acute hypoxemic respiratory failure. Patient continues to be intubated. 4. Chronic obstructive pulmonary disease with severe exacerbation. 5. Acute kidney injury, most likely from acute tubular necrosis. 6. Shock liver. 7. Triple acid-base disturbance (high anion gap metabolic acidosis, non-anion gap metabolic acidosis, and respiratory acidosis). We will give the patient pushes of bicarb at this point and continue to titrate the ventilator with pulmonary medicine recommendations. 8. Prognosis is extremely poor. This morning, Ms. Haywood looks remarkably worse than before. She is breathing 3-4 times above the ventilator settings. She is barely responding to deep suctioning. Otherwise, she is not responding. Otherwise, her pupils are quite dilated and minimally reactive. I have notified the about the current medical status and the poor prognostic features. He is going to discuss with the family and let us know what they plan to do going forward. 9. Gram-positive cocci pneumonia. We are still waiting on the identification and sensitivity. Blood cultures have been negative so I have discontinued the vancomycin and started the patient on Zyvox in combination with cefepime. Critical time spent is 1 hour. cc: Antwan Coelho MD [facility]
[2019-07-26] MEDS ORDERED: ROBINUL PO PRN (12:10)
[2019-07-26] MEDS: ATIVAN IV PRN ×3 (12:35→22:04)
[2019-07-26] MEDS: MORPHINE IV PRN ×3 (12:35→23:12)
--- NOTE | 2019-07-26 12:39 | PROGRESS NOTE ---
DATE: 07/26/2019 ADDENDUM: Ms. Haywood's family members called me and have requested that we discontinue the active critical care management and transition Ms. Haywood to Do Not Resuscitate level 1. They want us to extubate her and keep her comfortable. There were about 10 family members at the bedside at the time of this conversation including the and the kids. They do understand that Ms. Haywood is critically ill and that turning off the drips and extubating her will eventually make her transition out. They also understand that at this point, Ms. Haywood has an overwhelming infection and extremely poor cardiac reserve that is incompatible with life. They, therefore, want to transition her care to comfort measures. We are going to compassionately extubate her and then put her on Ativan and morphine p.r.n. if needed. If she is still here in a couple hours from now, then we will transfer her from the ICU to the medical floor so that all of them will be there with her. This conversation was also held in the presence of her attending nurse, Ms. Moss. cc: Antwan Coelho MD
--- NOTE | 2019-07-26 14:11 | PULMONOLOGY PROGRESS NOTE ---
DATE: 07/26/2019 SUBJECTIVE: Ms. Haywood continues to be intubated. She is on 4 pressors as well as Ativan and fentanyl. Family members are at the bedside. OBJECTIVE: Vital Signs: Blood pressure are Dopplered with systolic pressures in the 70s to 80s at this time, heart rate 133, respirations are 20 to 22, temperature is 100.1 degrees tympanic with O2 saturations 93 to 96 percent per ventilator with settings PRVC, tidal volume 700, FiO2 40%, rate of 10, PEEP of 5. HEENT: Head is normocephalic, atraumatic. Pupils are dilated. They do react to light. Mucous membranes are moist. Neck: Supple with trachea midline. Cardiovascular: She is tachycardic. S1 and S2 are appreciated. I do not hear a gallop or murmur. Pulmonary: Breath sounds are diminished throughout. Chest rises and falls symmetric with respiration. Gastrointestinal: Abdomen soft with bowel sounds in all 4 quadrants. Neurologic: She is sedated. LABS: WBC is 28.3 with a hemoglobin of 12.5, hematocrit 39 and platelets of 126,000. Sodium is 135, potassium 4.1, BUN 17, creatinine 1.4 with a glucose of 205. ProBNP is greater than 35,000 with AST of 1237 and ALT 1316. Chest x-ray reveals slightly worsened pulmonary edema with bilateral pleural effusions. ASSESSMENT AND PLAN: 1. Acute on chronic chronic obstructive pulmonary disease exacerbation. bronchodilators, steroids and supplemental oxygen. 2. Leukocytosis. Continue antibiotics. 3. Urinary tract infection. She is growing gram-positive cocci. continue antibiotic regimen and continue to follow culture. 4. Nonischemic cardiomyopathy with possible takotsubo with ejection fraction of 8 to 15 percent. Cardiology is following. dobutamine. 5. Non-Q-wave myocardial infarction, cardiology following. 6. Hypocalcemia. . 7. Cardiogenic shock. 8. Shock liver. Discussed condition, treatment and likely poor outcome with . Plan discussed with Dr Mcgraw. Dictated by SAGAR Penny for Carloz Mcgraw MD cc: SAGAR Penny MD [facility]
[2019-07-26] MEDS ORDERED: VANCOMYCIN 1 GM/NS 1 GM/250 ML IVPB IV SCH ×2 (18:00)
[2019-07-27] MEDS: MORPHINE IV PRN ×5 (04:00→21:28)
[2019-07-27] MEDS: ATIVAN IV PRN ×5 (04:00→21:27)
[2019-07-27] MEDS: XOPENEX NEB INH SCH ×2 (06:10→11:25)
--- NOTE | 2019-07-27 07:52 | PROGRESS NOTE ---
DATE: 07/27/2019 SUBJECTIVE: No acute events overnight. This patient is resting comfortably in bed. She is lethargic. Blood pressure is low. She seems to be comfortable. OBJECTIVE: Vital Signs: Temperature 97.8 degrees, pulse 93, respiratory rate 11, blood pressure 66/23, oxygen saturation 94% on nasal cannula. HEENT: Head normocephalic. No trauma. PERRLA. Neck: Supple. No JVD. No masses. Central trachea. Chest: Decreased breath sounds globally. Cardiovascular: Regular rate and rhythm. Sounds are distant. Abdomen: Soft, nondistended. Extremities: No edema, no clubbing, no cyanosis. Neurological: This patient is lethargic, unresponsive. Her pupils are dilated, and they do not move too much to light, sluggish. LABORATORY DATA: No lab work done today. ASSESSMENT AND PLAN: 1. Refractory shock, probably a combination of cardiogenic and septic shock. 2. Severe systolic dysfunction with an ejection fraction between 8% to 15%. 3. Acute hypoxemic respiratory failure. 4. Chronic obstructive pulmonary disease with exacerbation. 5. Acute kidney injury. 6. Shock liver. 7. Triple acid-base disturbance, high anion gap metabolic acidosis, with non-anion gap metabolic acidosis, and respiratory acidosis. 8. Gram-positive cocci pneumonia. 9. Poor prognosis. This patient is comfort measures only. Overall, her prognosis is extremely poor, she is remarkably sick, she is DO NOT RESUSCITATE, and she has been placed on comfort measures only. Palliative Care has been consulted. cc: Garett Guerra MD
--- NOTE | 2019-07-27 21:55 | PULMONOLOGY PROGRESS NOTE ---
DATE: 07/27/2019 INTERIM HISTORY: The patient has been extubated for comfort care only. She has been transferred to the floor. The family members are at the bedside. OBJECTIVE: Vital Signs: The patient has been afebrile for the last 24 hours. Blood pressure 91/56, heart rate 97, respiratory rate 10, oxygen saturation 94% on 5 L per nasal cannula. HEENT: Pupils are slightly reactive. Oropharynx appears clear. Neck: Supple. Chest: Reveals crackles bilaterally. Cardiac: S1-S2. Abdomen: Soft. Extremities: Cool to the touch. LABORATORIES: Sputum culture revealed Streptococcus pneumonia. No new chemistries or CBC today. IMPRESSION: A 64-year-old with 1. Chronic obstructive pulmonary disease exacerbation. 2. Cardiogenic shock. 3. Delirium/coma. 4. Hypoxemic respiratory failure. PLAN: Continue comfort measures and patient family support. cc: Carloz Mcgraw MD
[2019-07-28] MEDS: MORPHINE IV PRN ×10 (01:46→23:09)
[2019-07-28] MEDS: ATIVAN IV PRN ×10 (01:46→23:08)
[2019-07-28] MEDS: ATROPINE 1 % OPHTH SOLN SL PRN ×2 (09:15→14:29)
--- NOTE | 2019-07-28 12:11 | PROGRESS NOTE ---
DATE: 07/28/2019 SUBJECTIVE: No acute events overnight. The patient seems to be resting comfortably in bed. She is lethargic. OBJECTIVE: Vital Signs: Temperature 97.6 degrees, pulse 32, respiratory rate 15, blood pressure 149/75, oxygen saturation 95 on 5 L of nasal cannula. HEENT: Head normocephalic. No trauma. PERRLA. Neck: Supple. No JVD. No masses. Central trachea. Chest: Decreased breath sounds globally with coarse breath sounds, mostly at the bases. Cardiovascular: RRR. Sounds are distant. Abdomen: Soft, nondistended. Positive bowel sounds. Extremities: No edema, no clubbing, no cyanosis. Her feet are cold. Neurological Examination: This patient is lethargic. Laboratory: No lab work done today. ASSESSMENT AND PLAN: 1. Refractory shock, likely cardiogenic. There is a possibility of septic shock as well. 2. Severe systolic dysfunction with an ejection fraction between 8 to 15 percent. 3. Acute hypoxemic respiratory failure. 4. Chronic obstructive pulmonary disease exacerbation. 5. Acute kidney injury. 6. Shock liver. 7. Triple acid-base disturbance with high anion gap metabolic acidosis, non-anion gap metabolic acidosis, and respiratory acidosis. 8. Gram-positive cocci pneumonia with streptococcal pneumonia. 9. Urinary tract infection due to Staphylococcus simulans. 10. Poor prognosis. This patient is comfort measures only. Family members at the bedside. Her prognosis is extremely poor. She has been placed on comfort measures only. She is Do Not Resuscitate. Palliative care on board as well. cc: Garett Guerra MD
[2019-07-29] MEDS: ATIVAN IV PRN ×11 (01:36→21:48)
[2019-07-29] MEDS: MORPHINE IV PRN ×11 (01:36→21:49)
[2019-07-29] MEDS: ATROPINE 1 % OPHTH SOLN SL PRN ×2 (11:35→19:52)
--- NOTE | 2019-07-29 14:36 | PROGRESS NOTE ---
DATE: 07/29/2019 SUBJECTIVE: No acute events overnight. Continues with comfort measures only. She seems to be comfortable in bed. She is lethargic. OBJECTIVE: Vital Signs: Temperature 97.6 degrees, pulse 115, blood pressure 62/30, oxygen saturation 92 on 5 L nasal cannula. HEENT: Head normocephalic. No trauma. PERRLA. Neck: Supple. No JVD. No masses. Central trachea. Chest: Decreased breath sounds globally with coarse breath sounds, mostly at the bases. Crackles. Cardiovascular: Regular rate and rhythm. Tachycardic. Abdomen: Soft, nondistended. Extremities: No edema, no clubbing. They are cyanotic and cold. Neurological Examination: The patient is lethargic. Laboratory: No lab work done today. ASSESSMENT AND PLAN: 1. Refractory shock, likely cardiogenic. 2. Severe systolic dysfunction with an ejection fraction of 8 to 15 percent. 3. Acute hypoxemic respiratory failure. 4. Chronic obstructive pulmonary disease exacerbation. 5. Acute kidney injury. 6. Shock liver. 7. Triple acid-base disturbance with high anion gap metabolic acidosis, non-anion gap metabolic acidosis, and respiratory acidosis. 8. Gram-positive cocci pneumonia with a streptococcal pneumonia. 9. Urinary tract infection with Staphylococcus simulans. 10. Poor prognosis. The patient is on comfort measures only. Family members at the bedside. Prognosis is extremely poor. Continue with comfort measures only. cc: Garett Guerra MD
[2019-07-30] MEDS: ATIVAN IV PRN ×4 (00:03→07:55)
[2019-07-30] MEDS: MORPHINE IV PRN ×4 (00:03→07:55)
[2019-07-30] MEDS: ATROPINE 1 % OPHTH SOLN SL PRN ×2 (00:06→07:56)
[2019-07-30 08:11] VITALS: BP 50/28
--- NOTE | 2019-07-31 10:32 | DISCHARGE SUMMARY ---
ADMISSION DATE: 07/24/2019 DISCHARGE DATE: 07/30/2019 DIAGNOSES: 1. Refractory shock, likely cardiogenic. 2. Severe systolic dysfunction with an ejection fraction of 8 to 15 percent. 3. Acute hypoxemic respiratory failure. 4. Chronic obstructive pulmonary disease exacerbation. 5. Acute kidney injury. 6. Shock liver. 7. Triple acid-base disturbance with high anion gap metabolic acidosis, non anion gap metabolic acidosis and respiratory acidosis. 8. Gram-positive cocci pneumonia with streptococcal pneumoniae. 9. Urinary tract infection with Staphylococcus simulans. CONSULTANTS: Dr. Patrick Morejon, Cardiology and Dr. Carloz Mcgraw of Pulmonology. DIAGNOSTICS: 1. 07/24/2019: Chest x-ray revealed emphysema with pulmonary edema. 2. 07/24/2019: Echocardiogram limited revealed mid to apical anterior wall akinetic global ejection fraction no more than 15% and may be as low as 8%. This could represent extreme case of stress-related cardiomyopathy. There is only motion of the basal segments the septum, the lateral wall in the anterior septal segment and the posterior wall. There is a suggestion of a trivial pericardial effusion without tamponade. 3. 07/24/2019: Pulmonary arteriogram. No evidence of pulmonary emboli, pulmonary edema and COPD. The possibility of bronchitis and/or pneumonia in the right lower lobe cannot be excluded. 4. 07/24/2019: Chest x-ray revealed worsening pulmonary edema. 5. 07/24/2019: Post intubation chest x-ray reveals endotracheal tube with its tip approximately 2 cm above the denis and NG that passes below the diaphragm. There is diffuse interstitial pulmonary edema. 6. 07/25/2019: Chest x-ray pulmonary edema. 7. 07/26/2019: Chest x-ray, slightly worsened pulmonary edema with bilateral pleural effusions. MICROBIOLOGY: 1. Blood cultures x2 revealed no growth after 5 days. 2. Urine culture revealed Staphylococcus simulans. 3. Sputum culture revealed Streptococcus pneumoniae. 4. Influenza screen revealed negative influenza A or B. HOSPITAL COURSE: Ms. Haywood presented to the emergency room after having a sudden onset of shortness of breath while walking up the stairs to take a shower. She stated that she had no warnings. She had no chest pain. No other accompanying symptoms. All at once she could not get her breath. When this became persistent for greater than 30 minutes, they presented to the hospital. On arrival, respirations were 32 to 36. Saturations stayed 95 to 97 percent. She continued in respiratory distress despite DuoNeb, steroids, IV fluids. She was placed on BiPAP with no improvement and intubated. Blood pressures dropped into the 60s systolic. She ultimately required 4 pressors. She remained hypertensive despite Levophed, Eliazar-Synephrine, dobutamine, vasopressin, and epinephrine. She was initially placed on propofol. This was discontinued and she was given Ativan for sedation. Blood pressures did not change. On the the family members called and asked to speak to Dr. Coelho and asked that she be extubated, that drips be discontinued and her be allowed to . Dr. Coelho did speak with family members at length and on the she was compassionately extubated. She was placed on comfort measures moved to the floor so that family members could be with her and at 9:15 on July 30, she was found to be asystolic and apneic and she was pronounced by 2 RNs with family members at the bedside. Ms. Haywood had a UTI with Staphylococcus simulans and Streptococcus pneumoniae. Dictated by SAGAR Penny for Garett Guerra MD cc: SAGAR Penny MD
== END 2019-07-30 09:15 | disposition expired | DRG 871 ==
LOC: SUPCPDRO → ED 09:05 → 2N 12:03 → SUATTDRO 12:03 → ICU 16:21 → 3N 07-27 10:54
PROVIDERS: ATTEND Internal Medicine